=== PATIENT | female | born 1970 | race Caucasian/White ===

== ENCOUNTER 2017-09-28 01:31 | Emergency (ER) | payer BC, SELFPAY ==
[2017-09-28 01:32] VITALS: BP 145/96; PULSE 65; RESP 18; TEMP 36.8; O2SAT 100; BMI 25.4
--- NOTE | 2017-09-28 01:39 | CT_ITS ---
STUDY: CT ABDOMEN AND PELVIS WITH CONTRAST REASON FOR EXAM: Female, 47 years old. RLQ pain x couple of days but worse now, elevated WBC and BP. History of hypertension, pacemaker, ablation, tubal ligation. RADIATION DOSAGE (If Supplied By Facility): CTDIvol = ( 16.16 ) mGy, DLP = ( 572.31 ) mGycm TECHNIQUE: Transaxial 3.75 mm images were obtained from the dome of the diaphragm to the symphysis pubis with oral contrast. 100 ml of Isovue 300 contrast was administered. Sagittal and coronal images were reconstructed. Individualized dose optimization techniques were used for this CT. COMPARISON: None. FINDINGS: The visualized lung bases are unremarkable. The visualized portions of the heart are within normal limits.Pacer leads in the right atrium and ventricle with streak artifacts. Normal liver. Normal gallbladder and extrahepatic biliary system. Normal spleen. Normal pancreas. Normal bilateral adrenal glands. Normal right kidney. Normal left kidney. The stomach is not sufficiently distended, the stomach wall is indeterminate. Normal small intestine. There is moderate amount of fecal material. There is otherwise normal colon. The appendix is visualized and appears normal. Image 69 - 81 series 1002. Normal abdominal aorta. Normal inferior vena cava. Normal retroperitoneum. Normal urinary bladder. The uterus is age appropriate. Right ovarian cyst 3.7 x 2.7 cm. Normal abdominal wall. Grade 1-2 anterolisthesis of L4 on L5 with degenerative disease. CT/Abdomen/Pelvis WITH Contrast IMPRESSION: There is no appendicitis, colitis, diverticulitis, ascites, abscess, collection, perforation or obstruction. There is no obstructive uropathy, obstructive renal or ureteral calculi. There is moderate amount of fecal material. Right ovarian cyst. Indeterminate gastric wall. Electronically Signed: Seema Michaud MD at 3:52 EDT , Service support ,
[2017-09-28 01:46] LABS: Absolute Lymphocyte Count 4.53 X10^3/ul (0.83-4.51); Basophil# 0.05 X10^3/uL; Basophil% 0.4 % (0-1); Eosinophil# 0.12 X10^3/uL; Hematocrit 40.2 % (37-47); Hemoglobin 13.9 g/dl (12.0-15.0); Lymphocyte # 4.53 X10^3/ul (4.0); Lymphocyte % 39.2 % (19-41); Mean Corp Hgb Conc 34.6 g/gl (32-36); Mean Corpuscular Volume 92.4 fL (81-99); Mean Platelet Vol. 9.8 fl (6.2-12.0); Monocyte% 6.9 % (0-10); Neutrophil # 6.04 X10^3/uL (2.7-7.7); Neutrophil % 52.3 % (47-70); Platelet Count 235 K/mm3 (150-450); RBC Distribution Width CV 11.7 % (11.6-14.6); RBC Distribution Width SD 39.1 fl (35.1-43.9); Red Blood Count 4.35 M/mm3 (4.2-5.4); White Blood Count 11.6 K/mm3 (4.4-11.0)
[2017-09-28 01:48] LABS: POSITIVE COUNT NO; POSITIVE DIFFERENTIAL NO; POSITIVE MORPHOLOGY NO
[2017-09-28] MEDS: Ondansetron 4 MG/2 ML Vial IV (01:51)
[2017-09-28] MEDS: Morphine 4 MG/ML Syringe IV ×3 (01:51→04:14)
[2017-09-28] MEDS: 0.9% Normal Saline 1,000 ML 1000 ML IV (01:51)
[2017-09-28 02:02] LABS: ALB/GLOB Ratio 1.2 RATIO (0.9-2.4); AST(SGOT) 19 U/L (15-37); Alanine Aminotransfer ALT/SGPT 24 U/L (13-56); Alkaline Phosphatase 36 U/L (45-117); Anion Gap 7 (5-15); BUN 10 mg/dL (7-18); BUN/Creat Ratio 12.5 RATIO (10-20); Calcium,Total 8.8 mg/dL (8.5-10.1); Chloride 106 mmol/L (98-107); EST Glomerular Filtration Rate 81 mL/min (>60); Est Glom Filt Rate - Afr Amer 98 mL/min (>60); Estimated Creatinine Clearance 79.63 ml/min; Globulin 3.4 g/dL (2.2-4.2); Glucose 89 mg/dL (74-106); Protein, Total 7.4 g/dL (6.4-8.2); Sodium Level 141 mmol/L (136-145)
--- NOTE | 2017-09-28 02:10 | ED.DCSUM_ITS ---
- ER Visit Summary Date of Service: 09/28/17 Chief Complaint: Abdominal pain History of Present Illness: The patient is a 47 F presents to the emergency department with right lower quadrant abdominal pain. Patient states that she has had some intermittent cramping in this area for the past 10 days. However, over the past 2 days, the pain has worsened. She does describe some mild nausea. She felt like she had a fever last night. The pain is localized to her right lower quadrant. It is worse when she moves. She does have a history of ovarian cyst, but states this pain feels different. Patient has had prior endometrial ablation, but no other abdominal surgery. She was recently started on prednisone and amoxicillin for an upper respiratory infection 2 days ago. She does describe some mild dysuria, but denies any flank pain or chills. She has had no vomiting. Physical Examination: Vital signs reviewed General: Well-nourished, well-developed Head: Normocephalic, atraumatic Eyes: Pupils equal and reactive, extraocular muscles intact Neck, supple, no lymphadenopathy Heart: Regular rate and rhythm Respiratory: No distress, clear bilaterally Abdomen: Soft, tender in the right lower quadrant with voluntary guarding, nondistended, no peritoneal signs Back: Nontender Extremities: Nontender, no edema, no cords Skin: Normal color no rash Neuro: Alert and oriented, no focal or lateralizing deficits Test Results: [] Emergency Department Course and Treatment: The patient does have some tenderness in the right lower quadrant with voluntary guarding. I did want to rule out acute appendicitis. IV was established. Patient was given analgesics and antiemetics. She did have improvement of her pain. Her pain did seem to come in waves. Screening labs show mild leukocytosis of 11.6, however the patient is also on prednisone currently. Urine shows no evidence of infection. Patient underwent CT of the abdomen and pelvis. Her appendix is visualized and is normal. With 2 days of pain, along with a normal appendix, I do feel that this does not represent acute appendicitis. She does have a almost 4 cm cyst on the right ovary. I do feel that this is likely the cause of her pain. The patient was resting comfortably. She does have follow-up in place in 5 hours with her [facility] in [place]. I will treat the patient's pain. She is given her CAT scan on a disc along with report to take to her appointment. She is counseled on concerning symptoms and reasons to return. I do not feel that she has torsion. I do feel that she is safe for outpatient therapy as she is going to see the specialist in 5 hours. She is comfortable with this plan of care. Treatment Plan: [] Disposition: Discharge Impression: 1. Abdominal pain 2. Right ovarian cyst This note was generated with [employer] dictation software. It may contain incorrect words, spelling, and punctuation that were not noted in review of the chart prior to signing ED Disposition - Plan for ED Patient: Chief Complaint: Abd Pain Instructions: ED Cyst Ovarian Prescriptions: Hydrocodone Bitart/Apap 5-325 [[place] 5MG-325MG] 1 tab PO Q6H PRN PRN 3 Days #8 tab PRN Reason: Pain Naproxen [Naprosyn] 500 mg PO BID PRN #20 tab Referrals: [facility],Out of [Primary Care Provider] -
[2017-09-28 02:35] LABS: Mucous, Urine 0 SEEN /hpf (<or=2+); White Blood Cells 0 SEEN /hpf (0-5)
[2017-09-28 02:41] LABS: Color, Urine Yellow (Yellow); Glucose, Dipstick Normal (Normal); Ketone-Dipstick Negative (Negative); Leukocyte Esterase-Dipstick Negative /ul (Negative); Nitrite-Dipstick Negative (Negative); Occult Blood-Urine Negative /ul (Negative); Protein-Dipstick 15 mg/dl (Negative); Urine Bilirubin Dipstick Negative (Negative); Urine Clarity Clear (Clear); Urine Urobilinogen Normal (Normal)
[2017-09-28 02:48] LABS: Bacteria RARE /hpf (None Seen); Red Blood Cells-Urine 0-5 SEEN /hpf (0-5); Squamous Epithelial Cells - UA 0-5 SEEN /hpf (5-10)
[2017-09-28] MEDS: Ketorolac 30 MG/ML Syringe IV (04:13)
[2017-09-28 04:18] VITALS: BP 124/85; PULSE 62; RESP 18; O2SAT 98
[2017-09-28] MEDS: HYDROcodone Bitartrate/Apap 5/325 Tablet PO (04:43)
[2017-09-28 04:44] VITALS: BP 132/81; PULSE 52; RESP 16; O2SAT 97
== END 2017-09-28 04:52 | disposition home or self-care (01) ==
PROVIDERS: Emergency Provider Emergency Medicine; Family Provider Family Medicine
DX: N83.201 Unspecified ovarian cyst, right side (principal); R10.31 Right lower quadrant pain; I10 Essential (primary) hypertension; Z79.899 Other long term (current) drug therapy
CPT/HCPCS: 74177; 80053; 81001; 85025; 96361; 96374; 96375; 96376; 99284; J7030; Q9967; A4216; J2405

== ENCOUNTER → 2018-11-29 | Outpatient (CLI) | payer BC, SELFPAY ==
[2018-11-28 11:52] VITALS: BMI 25.4
--- NOTE | 2018-11-29 12:18 | US_ITS ---
STUDY: ULTRASOUND OF THE FEMALE PELVIS - COMPLETE REASON FOR EXAM: Female, 48 years old. Pelvic pain TECHNIQUE: Transabdominal and Transvaginal TECHNICAL QUALITY: Adequate. COMPARISON: None. FINDINGS: The uterus is anteverted and is in a midline position. The uterus measures 7.7 x 4.2 x 4.1 cm. Normal uterine cervix. The endometrium measures 5 mm in thickness, and is hyperechoic. There is no demonstrated endometrial mass. There are 2 fibroids noted in the uterus measuring 1.6 x 1.6 cm and 1.2 x 1.0 cm. There is a subcentimeter cyst in the uterus. The right ovary is visualized. The right ovary measures 2.9 x 2.7 x 1.4 cm. There is no right ovarian cyst or ovarian mass. There is no visualized right adnexal mass or complex lesion. There is normal arterial and normal venous vascularity. The left ovary is visualized. The left ovary measures 2.3 x 2.2 x 1.7 cm. There is no left ovarian cyst or ovarian mass. There is no visualized left adnexal mass or complex lesion. There is normal arterial and normal venous vascularity. There is no fluid in the cul-de-sac. US/Pelvic (Non ) IMPRESSION: Fibroid uterus. Normal bilateral ovaries with normal Doppler flow. Electronically Signed: Eamon Caputo, at 14:08 EDT Tel , Service support ,
--- NOTE | 2018-11-29 12:18 | US_ITS ---
STUDY: ULTRASOUND OF THE FEMALE PELVIS - COMPLETE REASON FOR EXAM: Female, 48 years old. Pelvic pain TECHNIQUE: Transabdominal and Transvaginal TECHNICAL QUALITY: Adequate. COMPARISON: None. FINDINGS: The uterus is anteverted and is in a midline position. The uterus measures 7.7 x 4.2 x 4.1 cm. Normal uterine cervix. The endometrium measures 5 mm in thickness, and is hyperechoic. There is no demonstrated endometrial mass. There are 2 fibroids noted in the uterus measuring 1.6 x 1.6 cm and 1.2 x 1.0 cm. There is a subcentimeter cyst in the uterus. The right ovary is visualized. The right ovary measures 2.9 x 2.7 x 1.4 cm. There is no right ovarian cyst or ovarian mass. There is no visualized right adnexal mass or complex lesion. There is normal arterial and normal venous vascularity. The left ovary is visualized. The left ovary measures 2.3 x 2.2 x 1.7 cm. There is no left ovarian cyst or ovarian mass. There is no visualized left adnexal mass or complex lesion. There is normal arterial and normal venous vascularity. There is no fluid in the cul-de-sac. US/Transvaginal Non- IMPRESSION: Fibroid uterus. Normal bilateral ovaries with normal Doppler flow. Electronically Signed: Eamon Caputo, at 14:08 EDT Tel , Service support ,
== END | disposition home or self-care (01) ==
LOC: US 12:17
PROVIDERS: Family Provider Family Medicine; PCP Family Medicine; Referring Provider Nurse Practitioner Women's Health; Visit Provider Nurse Practitioner Women's Health
DX: R10.2 Pelvic and perineal pain (principal)
CPT/HCPCS: 76830; 76856; 93976

== ENCOUNTER → 2020-01-07 08:39 | Outpatient (CLI) | payer BC, SELFPAY ==
[2018-11-28 11:52] VITALS: BMI 25.4
--- NOTE | 2020-01-07 08:43 | US_ITS ---
STUDY: ABDOMINAL ULTRASOUND - RIGHT UPPER QUADRANT REASON FOR VISIT: Female, 49 years old elevated lft''s TECHNIQUE: Ultrasound evaluation of the right upper quadrant was performed with real-time and static ram-scale imaging. TECHNICAL QUALITY: Adequate. COMPARISON: None. FINDINGS: Liver: The liver measures 14.3 cm. There is normal echogenicity of the liver. The bile ducts are within normal limits. There is hepatic color flow. The direction of portal flow is hepatopetal. There is no demonstrated mass lesion. Gallbladder: Normal distended gallbladder. The gallbladder wall measures 2.0 mm. There is a negative sonographic Silveira''s sign. There is no pericholecystic fluid. There are no gallstones. Common Bile Duct (C.B.D.): The common bile duct measures 1.4 mm. Pancreas: Normal size of the head, body and tail of the pancreas. There is normal echogenicity of the pancreas. There is no demonstrated pancreatic mass or cyst. Right Kidney: Normal size of the right kidney. The right kidney measures 10.7 cm x 4.2 PABLO by 4.6 cm. Normal renal cortex. The right cortex measures 1.2 cm. There is no demonstrated renal mass or cyst. There is no right hydronephrosis. US/Liver IMPRESSION: Normal right upper quadrant ultrasound examination. Electronically Signed: Mac Lynne, at 13:58 EST , Service support ,
== END ==
PROVIDERS: PCP Family Medicine; Referring Provider Internal Medicine Rheumatology; Visit Provider Internal Medicine Rheumatology
DX: M06.4 Inflammatory polyarthropathy (principal); M35.00 Sjogren syndrome, unspecified; G56.01 Carpal tunnel syndrome, right upper limb; I10 Essential (primary) hypertension; Z79.899 Other long term (current) drug therapy
CPT/HCPCS: 76705

== ENCOUNTER → 2022-06-24 | Outpatient (CLI) | payer BC, SELFPAY ==
--- NOTE | 2022-06-24 08:11 | RAD_ITS ---
STUDY: X-RAY - ESOPHAGUS (BARIUM SWALLOW) WITH FLUOROSCOPY REASON FOR EXAM: Female, 51 years old. DYSPHAGIA TECHNIQUE: 15 view(s) of the esophagus were obtained following swallowing of barium. FLUOROSCOPY TIME (if supplied): (30 seconds) minutes/seconds. 3.72 mGy COMPARISON: None. FINDINGS: There is no demonstrated esophageal foreign body. There is no demonstrated stricture or mucosal abnormality. Normal gastroesophageal junction, without a demonstrated hiatal hernia. The patient ingested a 12 mm tablet of barium without any difficulty. Normal visualized aortic arch and descending thoracic aorta. Normal visualized pulmonary parenchyma. Normal visualized osseous structures of the thorax. RAD/Esophagus Dual Contrast IMPRESSION: Normal plain film x-ray examination (barium swallow) of the esophagus. Electronically Signed: Mac Lynne MD at 14:14 EDT ,
== END | disposition home or self-care (01) ==
LOC: RAD 08:10
PROVIDERS: PCP Family Medicine; Referring Provider Internal Medicine Gastroenterology; Visit Provider Internal Medicine Gastroenterology
DX: R13.10 Dysphagia, unspecified (principal); K21.9 Gastro-esophageal reflux disease without esophagitis
CPT/HCPCS: 74221

== ENCOUNTER → 2024-03-02 | Outpatient (CLI) | payer BC, SELFPAY | END | disposition home or self-care (01) | LOC: LABSPEC 15:43 | PROVIDERS: PCP Family Medicine; Referring Provider Dermatology; Visit Provider Dermatology | DX: L02.213 Cutaneous abscess of chest wall (principal); L80 Vitiligo; L30.8 Other specified dermatitis | CPT/HCPCS: 87070; 87077; 87186; 87205 ==